=== PATIENT | male | born 1965 | race Caucasian/White ===

== ENCOUNTER 2021-03-30 22:46 | Inpatient (IN) ==
[2021-03-31] MEDS ORDERED: *HR* OxyCODONE Immed Rel 5 MG TABLET PO PRN (01:16)
[2021-03-31] MEDS ORDERED: Acetaminophen 325 MG TABLET PO PRN (01:16)
[2021-03-31] MEDS ORDERED: Ondansetron ODT 4 MG TAB.RAPDIS SL PRN (01:16)
[2021-03-31] MEDS ORDERED: Naloxone 0.4 MG/ML INJ IVP PRN (01:16)
[2021-03-31] MEDS ORDERED: Melatonin 3 MG TABLET PO PRN (01:16)
[2021-03-31] MEDS ORDERED: *HR* HYDROcodone/Acet 5/325 mg TABLET PO PRN (01:16)
[2021-03-31] MEDS ORDERED: Perflutren Lipid Microsphere 1.3 ML in 0.9 % Sodium Chloride 8.7 ML IVP PRN (01:19)
[2021-03-31] MEDS: Nitroglycerin 0.4 MG TAB.SUBL SL PRN ×2 (01:44→08:50)
[2021-03-31] MEDS ORDERED: *HR* Heparin 5,000 UNIT/ML VIAL IVP ONE (01:50)
[2021-03-31] MEDS ORDERED: *HR* Heparin 5,000 UNIT/ML VIAL IVP PRN ×2 (01:50)
[2021-03-31] MEDS ORDERED: Heparin 25,000UNIT/250ML 1/2NS 25,000 UNIT/250 ML IV.SOLN IVC SCH (02:00)
[2021-03-31] MEDS ORDERED: Heparin 25,000 UNIT/250 ML 25,000 UNIT/250 ML IV.SOLN IVC SCH (02:15)
[2021-03-31 02:19] LABS: Basophils # 0.1 K/mcL (0.0-0.2); Basophils % 0.6 %; Eosinophils # 0.1 K/mcL (0.0-0.6); Hematocrit 42.4 % (37.5-50.1); Hemoglobin 13.9 g/dL (12.9-16.9); Immature Granulocytes % 0.4 % (0-4); Immature Platelets 16.5 % (1.1-6.1); Lymphocytes # 2.6 K/mcL (0.6-4.6); Lymphocytes % 23.4 %; Mean Corpuscular HGB Conc 32.8 g/dL (31.6-35.5); Mean Corpuscular Hemoglobin 30.6 pg (28.0-33.3); Mean Corpuscular Volume 93.4 fL (83.0-100.0); Mean Platelet Volume 13.5 fL (9.4-12.4); Monocytes # 0.9 K/mcL (0.0-1.3); Monocytes % 8.2 %; Neutrophils # 7.3 K/mcL (1.6-8.9); Platelet Count 143 K/mcL (140-400); Red Blood Count 4.54 M/mcL (4.19-5.50); Red Cell Distribution Width 13.4 % (11.5-14.5); Segmented Neutrophils % 66.4 %
[2021-03-31 02:23] LABS: Prothrombin Time 11.5 Seconds (9.4-12.1)
[2021-03-31 02:24] LABS: Heparin anti-factor XA UFH 0.34 IU/mL (0.30-0.70)
[2021-03-31 02:29] LABS: Alanine Aminotransferase 20 Units/L (7-52); Albumin/Globulin Ratio 1.2 (1.1-2.2); Alkaline Phosphatase 69 Units/L (34-104); Aspartate Amino Transferase 64 Units/L (13-39); BUN/Creatinine Ratio 16 (6-26); Bilirubin,Total 0.4 mg/dL (0.3-1.0); Blood Urea Nitrogen 20 mg/dL (6-20); Calcium 8.8 mg/dL (8.6-10.3); Carbon Dioxide 24 mEq/L (23-29); Chloride 103 mEq/L (98-107); Globulin 2.6 g/dL (2.4-3.5); Glucose 272 mg/dL (70-105); Magnesium 1.6 mg/dL (1.6-2.6); Osmolality,Calculated 290 (280-300); Potassium 4.1 mEq/L (3.5-5.1); Sodium 134 mEq/L (136-145); Total Protein 5.6 g/dL (6.4-8.9); eGFR For African Americans > 60 (> 60); eGFR For Non-African Americans > 60 (> 60)
[2021-03-31] MEDS: Nicotine 21 MG PATCH.TD24 TD SCH (08:57)
[2021-03-31] MEDS ORDERED: *HR* Metoprolol 5 MG/5 ML VIAL IVP ONE (09:19)
[2021-03-31 09:23] LABS: Immature Granulocytes % 0.4 % (0-4); Red Cell Distribution Width 13.4 % (11.5-14.5)
[2021-03-31 09:24] LABS: Basophils # 0.1 K/mcL (0.0-0.2); Basophils % 0.6 %; Eosinophils # 0.1 K/mcL (0.0-0.6); Eosinophils % 0.7 %; Hematocrit 44.6 % (37.5-50.1); Hemoglobin 14.4 g/dL (12.9-16.9); Immature Platelets 18.6 % (1.1-6.1); Lymphocytes # 2.3 K/mcL (0.6-4.6); Lymphocytes % 21.1 %; Mean Corpuscular HGB Conc 32.3 g/dL (31.6-35.5); Mean Corpuscular Hemoglobin 29.8 pg (28.0-33.3); Mean Corpuscular Volume 92.3 fL (83.0-100.0); Mean Platelet Volume 13.9 fL (9.4-12.4); Monocytes # 0.8 K/mcL (0.0-1.3); Monocytes % 7.4 %; Neutrophils # 7.6 K/mcL (1.6-8.9); Platelet Count 153 K/mcL (140-400); Red Blood Count 4.83 M/mcL (4.19-5.50); Segmented Neutrophils % 69.8 %; White Blood Count 10.9 K/mcL (4.3-11.1)
[2021-03-31 09:38] LABS: Magnesium 1.6 mg/dL (1.6-2.6)
[2021-03-31 09:55] LABS: Troponin I 20.12 ng/mL (< 0.04)
[2021-03-31] MEDS: Aspirin 81 MG TAB.CHEW PO SCH (11:28)
[2021-03-31] MEDS: *HR* Amiodarone 200 MG TABLET PO SCH ×2 (11:28→20:43)
[2021-03-31] MEDS: *HR* Ticagrelor 90 MG TABLET PO SCH ×2 (11:36→19:32)
[2021-03-31] MEDS ORDERED: 0.9 % Sodium Chloride 1,000 ML IV SCH (11:45)
[2021-03-31] MEDS ORDERED: D5% in Water 1,000 ML IVC PRN (11:53)
[2021-03-31] MEDS ORDERED: *HR* Dextrose 50 % in Water (Syg) 50 ML SYRINGE IVP PRN (11:53)
[2021-03-31] MEDS ORDERED: Dextrose Gel 15 GM/37.5 ML TUBE PO PRN ×2 (11:53)
[2021-03-31 12:36] LABS: Amphetamine Screen,Urine Negative ng/mL (Cutoff=1000); Barbiturate Screen,Urine Negative ng/mL (Cutoff=200); Benzodiazepines Screen,Urine Negative ng/mL (Cutoff=200); Cannabinoid Screen,Urine Negative ng/mL (Cutoff = 50); Cocaine Screen,Urine Negative ng/mL (Cutoff= 300); Opiate Screen,Urine Negative ng/mL (Cutoff=300); Phencyclidine Screen,Urine Negative ng/mL (Cutoff=25)
[2021-03-31] MEDS ORDERED: Heparin 1,000 UNITS/500 mL 500 ML ONE (15:24)
[2021-03-31] MEDS ORDERED: 0.9 % Sodium Chloride 1,000 ML ONE ×2 (15:24→15:25)
[2021-03-31] MEDS ORDERED: *HR* Heparin 10,000 UNIT/10 ML VIAL ONE (15:24)
[2021-03-31] MEDS ORDERED: ISOVUE-370 200 ML INFUS..BTL ONE ×2 (15:24→16:21)
[2021-03-31] MEDS ORDERED: Nitroglycerin 1,000 MCG/5 ML VIAL IV ONE (15:25)
[2021-03-31] MEDS ORDERED: *HR* FentaNYL (PF) 100 MCG/2 ML VIAL ONE (15:41)
[2021-03-31] MEDS ORDERED: *HR* Midazolam HCl 2 MG/2 ML VIAL ONE (15:41)
[2021-03-31] MEDS ORDERED: Tirofiban 12.5 MG/250ML 12.5 MG/250 ML BAG ONE (16:09)
[2021-03-31] MEDS ORDERED: *HR* Ticagrelor 90 MG TABLET ONE (16:14)
[2021-03-31] MEDS ORDERED: niCARdipine 20 MG/200 ML MLS IVC ONE (16:41)
[2021-03-31] MEDS ORDERED: Tirofiban 12.5 MG/250ML 12.5 MG/250 ML BAG IVC SCH (17:15)
[2021-03-31 17:53] LABS: Immature Granulocytes % 0.5 % (0-4); Lymphocytes % 22.2 %; Mean Corpuscular HGB Conc 32.3 g/dL (31.6-35.5); Red Cell Distribution Width 13.5 % (11.5-14.5); White Blood Count 10.6 K/mcL (4.3-11.1)
[2021-03-31 17:54] LABS: Eosinophils # 0.1 K/mcL (0.0-0.6); Eosinophils % 0.9 %; Lymphocytes # 2.4 K/mcL (0.6-4.6)
[2021-03-31 17:55] LABS: Basophils # 0.1 K/mcL (0.0-0.2); Basophils % 0.6 %; Hematocrit 41.8 % (37.5-50.1); Hemoglobin 13.5 g/dL (12.9-16.9); Immature Platelets 17.4 % (1.1-6.1); Mean Corpuscular Hemoglobin 30.1 pg (28.0-33.3); Mean Corpuscular Volume 93.3 fL (83.0-100.0); Mean Platelet Volume 13.5 fL (9.4-12.4); Monocytes # 0.8 K/mcL (0.0-1.3); Monocytes % 7.6 %; Platelet Count 142 K/mcL (140-400); Red Blood Count 4.48 M/mcL (4.19-5.50); Segmented Neutrophils % 68.2 %
[2021-03-31] MEDS: Insulin LISPRO 300 UNITS/3 ML VIAL SUBQ SCH ×2 (17:59→20:43)
[2021-03-31 18:00] LABS: Neutrophils # 7.2 K/mcL (1.6-8.9)
[2021-03-31] MEDS ORDERED: Metoprolol XL (24 HR) Succ 50 MG TAB.ER.24H PO SCH (21:00)
[2021-03-31] MEDS ORDERED: Ipratropium Neb 0.5 MG NEBULIZER IH PRN (22:30)
[2021-04-01] MEDS ORDERED: Ipratropium Neb 0.5 MG NEBULIZER IH SCH
[2021-04-01 04:01] LABS: Basophils % 0.5 %; Lymphocytes % 16.7 %; Red Cell Distribution Width 13.7 % (11.5-14.5)
[2021-04-01 04:03] LABS: Basophils # 0.1 K/mcL (0.0-0.2); Eosinophils # 0.1 K/mcL (0.0-0.6); Eosinophils % 0.5 %; Hematocrit 36.9 % (37.5-50.1); Hemoglobin 11.9 g/dL (12.9-16.9); Immature Granulocytes % 0.6 % (0-4); Immature Platelets 21.2 % (1.1-6.1); Lymphocytes # 1.8 K/mcL (0.6-4.6); Mean Corpuscular HGB Conc 32.2 g/dL (31.6-35.5); Mean Corpuscular Hemoglobin 30.1 pg (28.0-33.3); Mean Corpuscular Volume 93.2 fL (83.0-100.0); Mean Platelet Volume 14.3 fL (9.4-12.4); Monocytes # 0.9 K/mcL (0.0-1.3); Monocytes % 8.3 %; Neutrophils # 8.1 K/mcL (1.6-8.9); Platelet Count 141 K/mcL (140-400); Red Blood Count 3.96 M/mcL (4.19-5.50); Segmented Neutrophils % 73.4 %
[2021-04-01 04:18] LABS: BUN/Creatinine Ratio 15 (6-26); Blood Urea Nitrogen 19 mg/dL (6-20); Calcium 8.4 mg/dL (8.6-10.3); Carbon Dioxide 24 mEq/L (23-29); Chloride 101 mEq/L (98-107); Glucose 213 mg/dL (70-105); Osmolality,Calculated 287 (280-300); Potassium 3.7 mEq/L (3.5-5.1); Sodium 134 mEq/L (136-145); eGFR For African Americans > 60 (> 60); eGFR For Non-African Americans 59 (> 60)
[2021-04-01] MEDS ORDERED: Heparin 25,000 UNIT/250 ML 25,000 UNIT/250 ML IV.SOLN IVC SCH (07:00)
[2021-04-01] MEDS ORDERED: *HR* Heparin 5,000 UNIT/ML VIAL IVP PRN ×2 (07:00)
[2021-04-01] MEDS: *HR* Ticagrelor 90 MG TABLET PO SCH ×2 (08:49→19:42)
[2021-04-01] MEDS: Aspirin 81 MG TAB.CHEW PO SCH (08:49)
[2021-04-01] MEDS: Insulin LISPRO 300 UNITS/3 ML VIAL SUBQ SCH ×4 (08:50→22:34)
[2021-04-01] MEDS: Nicotine 21 MG PATCH.TD24 TD SCH (08:50)
[2021-04-01] MEDS ORDERED: *HR* Rivaroxaban 10 MG TABLET PO SCH ×3 (09:00→17:00)
[2021-04-01] MEDS: *HR* Amiodarone 200 MG TABLET PO SCH ×2 (09:05→19:42)
[2021-04-01] MEDS: *HR* Rivaroxaban 10 MG TABLET PO SCH (09:10)
[2021-04-01] MEDS ORDERED: lisinopriL 5 MG TABLET PO SCH (10:30)
[2021-04-01] MEDS ORDERED: Metoprolol XL (24 HR) Succ 50 MG TAB.ER.24H PO SCH (21:00)
[2021-04-02 02:02] LABS: Basophils % 0.3 %; Eosinophils # 0.1 K/mcL (0.0-0.6); Hematocrit 32.8 % (37.5-50.1); Hemoglobin 10.5 g/dL (12.9-16.9); Immature Granulocytes % 0.6 % (0-4); Lymphocytes # 1.8 K/mcL (0.6-4.6); Lymphocytes % 18.1 %; Mean Corpuscular Hemoglobin 29.8 pg (28.0-33.3); Mean Corpuscular Volume 93.2 fL (83.0-100.0); Mean Platelet Volume 14.3 fL (9.4-12.4); Monocytes # 0.9 K/mcL (0.0-1.3); Monocytes % 8.9 %; Neutrophils # 6.9 K/mcL (1.6-8.9); Platelet Count 118 K/mcL (140-400); Red Blood Count 3.52 M/mcL (4.19-5.50); Red Cell Distribution Width 13.7 % (11.5-14.5); Segmented Neutrophils % 71.1 %; White Blood Count 9.7 K/mcL (4.3-11.1)
[2021-04-02 02:20] LABS: BUN/Creatinine Ratio 15 (6-26); Blood Urea Nitrogen 22 mg/dL (6-20); Calcium 8.1 mg/dL (8.6-10.3); Carbon Dioxide 24 mEq/L (23-29); Chloride 103 mEq/L (98-107); Glucose 168 mg/dL (70-105); Osmolality,Calculated 287 (280-300); Potassium 3.8 mEq/L (3.5-5.1); Sodium 135 mEq/L (136-145); eGFR For African Americans > 60 (> 60); eGFR For Non-African Americans 51 (> 60)
[2021-04-02 08:17] LABS: Estimated Average Glucose 286 mg/dl; Hemoglobin A1C 11.6 %
[2021-04-02] MEDS: Aspirin 81 MG TAB.CHEW PO SCH (08:42)
[2021-04-02] MEDS: *HR* Amiodarone 200 MG TABLET PO SCH (08:42)
[2021-04-02] MEDS: *HR* Rivaroxaban 10 MG TABLET PO SCH (08:42)
[2021-04-02] MEDS: *HR* Ticagrelor 90 MG TABLET PO SCH ×2 (08:42→20:19)
[2021-04-02] MEDS: Insulin LISPRO 300 UNITS/3 ML VIAL SUBQ SCH ×4 (08:43→20:11)
[2021-04-02] MEDS: Nicotine 21 MG PATCH.TD24 TD SCH (08:43)
[2021-04-02] MEDS ORDERED: Metoprolol XL (24 HR) Succ 25 MG TAB.ER.24H PO SCH ×2 (09:00→15:51)
[2021-04-02] MEDS ORDERED: lisinopriL 5 MG TABLET PO SCH (12:00)
[2021-04-02 14:34] LABS: Hematocrit 35.3 % (37.5-50.1); Hemoglobin 11.6 g/dL (12.9-16.9)
[2021-04-02] MEDS: Metoprolol XL (24 HR) Succ 25 MG TAB.ER.24H PO SCH (17:18)
[2021-04-03 02:39] LABS: Immature Granulocytes % 0.3 % (0-4); Mean Corpuscular Volume 93.7 fL (83.0-100.0)
[2021-04-03 02:41] LABS: Basophils % 0.3 %; Eosinophils # 0.2 K/mcL (0.0-0.6); Eosinophils % 1.7 %; Hematocrit 34.1 % (37.5-50.1); Hemoglobin 10.8 g/dL (12.9-16.9); Immature Platelets 21.4 % (1.1-6.1); Lymphocytes % 22.8 %; Mean Corpuscular HGB Conc 31.7 g/dL (31.6-35.5); Mean Corpuscular Hemoglobin 29.7 pg (28.0-33.3); Mean Platelet Volume 14.4 fL (9.4-12.4); Monocytes % 9.7 %; Neutrophils # 5.7 K/mcL (1.6-8.9); Platelet Count 135 K/mcL (140-400); Red Blood Count 3.64 M/mcL (4.19-5.50); Red Cell Distribution Width 13.4 % (11.5-14.5); Segmented Neutrophils % 65.2 %; White Blood Count 8.7 K/mcL (4.3-11.1)
[2021-04-03 02:51] LABS: Monocytes # 0.8 K/mcL (0.0-1.3)
[2021-04-03 02:59] LABS: Calcium 8.2 mg/dL (8.6-10.3); Potassium 3.9 mEq/L (3.5-5.1)
[2021-04-03] MEDS: Insulin LISPRO 300 UNITS/3 ML VIAL SUBQ SCH ×4 (07:33→20:32)
[2021-04-03] MEDS: Metoprolol XL (24 HR) Succ 25 MG TAB.ER.24H PO SCH ×3 (07:34→23:29)
[2021-04-03] MEDS: *HR* Ticagrelor 90 MG TABLET PO SCH ×2 (07:34→20:31)
[2021-04-03] MEDS ORDERED: 0.9 % Sodium Chloride 500 ML IVC SCH (07:45)
[2021-04-03] MEDS: Nicotine 21 MG PATCH.TD24 TD SCH (09:14)
[2021-04-03] MEDS: *HR* Amiodarone 200 MG TABLET PO SCH (09:14)
[2021-04-03] MEDS: *HR* Rivaroxaban 10 MG TABLET PO SCH (11:52)
[2021-04-03] MEDS: Famotidine 20 MG TABLET PO SCH (13:33)
[2021-04-03] MEDS: Budesonide/Formoterol 160/4.5 1 PUFF INH IH SCH ×2 (16:08→20:12)
[2021-04-04 05:11] LABS: Basophils % 0.5 %; Eosinophils # 0.3 K/mcL (0.0-0.6); Hematocrit 33.5 % (37.5-50.1); Hemoglobin 10.6 g/dL (12.9-16.9); Immature Granulocytes % 0.5 % (0-4); Immature Platelets 21.1 % (1.1-6.1); Lymphocytes # 2.1 K/mcL (0.6-4.6); Lymphocytes % 25.9 %; Mean Corpuscular HGB Conc 31.6 g/dL (31.6-35.5); Mean Corpuscular Hemoglobin 29.7 pg (28.0-33.3); Mean Corpuscular Volume 93.8 fL (83.0-100.0); Mean Platelet Volume 14.5 fL (9.4-12.4); Monocytes # 0.8 K/mcL (0.0-1.3); Monocytes % 10.2 %; Neutrophils # 4.8 K/mcL (1.6-8.9); Platelet Count 141 K/mcL (140-400); Red Blood Count 3.57 M/mcL (4.19-5.50); Red Cell Distribution Width 13.3 % (11.5-14.5); Segmented Neutrophils % 58.9 %; White Blood Count 8.2 K/mcL (4.3-11.1)
[2021-04-04 05:27] LABS: BUN/Creatinine Ratio 19 (6-26); Blood Urea Nitrogen 25 mg/dL (6-20); Calcium 8.2 mg/dL (8.6-10.3); Carbon Dioxide 22 mEq/L (23-29); Chloride 106 mEq/L (98-107); Glucose 227 mg/dL (70-105); Osmolality,Calculated 294 (280-300); Sodium 136 mEq/L (136-145); eGFR For African Americans > 60 (> 60); eGFR For Non-African Americans 58 (> 60)
[2021-04-04 06:56] VITALS: TEMP 97.8
[2021-04-04] MEDS: Insulin LISPRO 300 UNITS/3 ML VIAL SUBQ SCH ×2 (07:32→11:47)
[2021-04-04] MEDS: Nicotine 21 MG PATCH.TD24 TD SCH (07:33)
[2021-04-04] MEDS: Famotidine 20 MG TABLET PO SCH (07:33)
[2021-04-04] MEDS: Metoprolol XL (24 HR) Succ 25 MG TAB.ER.24H PO SCH (07:33)
[2021-04-04] MEDS: *HR* Ticagrelor 90 MG TABLET PO SCH (07:33)
[2021-04-04] MEDS: *HR* Amiodarone 200 MG TABLET PO SCH (07:34)
[2021-04-04] MEDS ORDERED: Loratadine 10 MG TABLET PO SCH (09:00)
[2021-04-04] MEDS: Budesonide/Formoterol 160/4.5 1 PUFF INH IH SCH (10:24)
[2021-04-04 10:26] VITALS: BP 135/83; PULSE 73; O2SAT 97
[2021-04-04] MEDS: *HR* Rivaroxaban 10 MG TABLET PO SCH (11:46)
== END 2021-04-04 12:20 | disposition home or self-care (01) | DRG 174 ==
LOC: 2ANU → SUATTDRO 03-31 00:57 → ICNU 03-31 17:31 → 2NNU 03-31 23:07 → 2ANU 04-01 10:35
PROVIDERS: ADMIT Family Medicine; ATTEND Student in an Organized Health Care Education/Training Program